=== PATIENT | female | born 1955 | race Caucasian/White ===

== ENCOUNTER 2018-03-28 02:10 | Inpatient (IN) | payer OTHER ==
[~2018-03-28] VITALS: Ht 157.5 cm; Wt 93.0 kg
[~2018-03-28 02:10] MED LIST: ATORVASTATIN CA20 M1 PO; COZAAR100 M1 PO; DUEXIS 800-26.1 EACH PO; FARXIGA5 M1 PO; GABAPENTIN100 M2 PO; GABAPENTIN300 M2 PO; GLUCOPHAGE1000 M1 PO; JARDIANCE10 M1 PO; MASOPHEN500 MG PO; TRESIBA FL100 UNIT/1 SC
--- NOTE | 2018-03-28 12:48 | Admission Core Measures ---
Acute Coronary Syndrome (CM) ACS Core Measures Acute Coronary Syndrome Diagnosis No Congestive Heart Failure (NEW) CHF Core Measures Congestive Heart Failure Diagnosis No Cerebrovascular Accident CVA Core Measures CVA/TIA Diagnosis No Venous Thromboembolism VTE Core Brandyn (View Protocol) VTE Risk Factors Surgery No Mechanical VTE Prophylaxis d/t N/A MechProphylax Ordered No VTE Pharm Prophylaxis d/t NA PharmProphylax ordered Problem List As ranked by this Provider includes Assessment & Plan 1. Unilateral primary osteoarthritis, right hip HOME MEDS Home Med List Acetaminophen (Masophen) 500 MG TABLET 2 TAB PO PRN PAIN (Reported) Atorvastatin Calcium 20 MG TABLET 1 TAB PO Monday CHOLESTEROL ( Reported) Dapagliflozin Propanediol (Farxiga) 5 MG TABLET 1 TAB PO DAILY DM (Reported) Gabapentin 100 MG CAPSULE 1 CAP PO QAM NEUROPATHY (Reported) Gabapentin 300 MG CAPSULE 1 CAP PO QHS NERVE PAIN (Reported) Ibuprofen/Famotidine (Duexis 800-26.6 MG Tablet) 800 MG-26.6 MG TABLET 1 TAB PO BID PAIN/INFLAMMATION (Reported) Insulin Degludec (Tresiba Flextouch U-100) 100 UNIT/ML (3 ML) INSULN.PEN 52-56 UNIT SC QAM DM (Reported) Losartan (Cozaar) 100 MG TABLET 1 TAB PO DAILY BP (Reported) Metformin HCl (Glucophage) 1,000 MG TABLET 1 TAB PO BID DM (Reported)
[2018-03-28] MEDS ORDERED: ASPIRIN EC81 M1 PO (12:52)
[2018-03-28] MEDS ORDERED: PEPCID20 M1 PO (12:52)
[2018-03-28] MEDS ORDERED: COLACE100 M1 PO (12:52)
[2018-03-28] MEDS ORDERED: MIRALAX17 G1 PO (12:52)
--- NOTE | 2018-03-28 13:04 | Patient Discharge Instructions ---
Discharge Instructions General Discharge Information You were seen/treated for: Right hip pain related to unilateral primary osteoarthritis You had these procedures: Right total hip replacement Watch for these problems: Increasing pain despite the use of pain medication Increasing redness, warmth or swelling Drainage of any type from incision Inability to bear weight on operative leg Persistent nausea and vomiting Fever greater than 101.5 degrees Do not soak the wound: Yes No bath, but you may shower: Yes Other wound care: Please keep wound clean and dry. No ointments or lotions of any type on or near incision at any time. No exceptions. Your dressing will be changed by your nurse on the second day after your surgery. Daily dry dressing changes are recommended each day thereafter. Do not soak your wound in a bath or pool at any time until otherwise indicated by your surgeon. You may shower, please dry wound immediately after shower with a clean towel. Special Instructions: Aspirin: You are taking this medication to help prevent blood clot formation. Please take with food to protect your stomach lining. Please take as directed. Constipation: Pain medication can cause constipation. Your surgeon has recommended that you take Colace and miralax each day. You may discontinue this medication if you develop loose stool or diarrhea. If you wish to continue this medication, it is available over the counter. If you are unable to move your bowels after several days, if you are unable to pass gas and are developing bloating, nausea, or vomiting as a result, please contact your doctor. Diet Continue normal diet: No Recommended Diet: Diabetic Activity Full Activity/No Limits: No Activity Self Limited: Yes Pounds, do NOT lift more than: 10 Acute Coronary Syndrome Inclusion Criteria At DC or during hospital stay patient has or had the following: ACS DIAGNOSIS No Discharge Core Measures Meds if any: Prescribed or Continued at Discharge Meds if any: NOT Prescribed or Continued at Discharge Congestive Heart Failure Inclusion Criteria At DC or during hospital stay patient has or had the following: CHF DIAGNOSIS No Discharge Core Measures Meds if any: Prescribed or Continued at Discharge Meds if any: NOT Prescribed or Continued at Discharge Cerebrovascular accident Inclusion Criteria At DC or during hospital stay patient has or had the following: CVA/TIA Diagnosis No Discharge Core Measures Meds if any: Prescribed or Continued at Discharge Meds if any: NOT Prescribed or Continued at Discharge Venous thromboembolism Inclusion Criteria VTE Diagnosis No VTE Type NONE VTE Confirmed by (Test) NONE Discharge Core Measures - Per Current guidelines, there needs to be overlap - treatment for the first 5 days of Warfarin therapy. - If discharged on Warfarin prior to 5 days of - overlap therapy, the patient will need to be - assessed for post discharge needs including - *Post discharge parental anticoagulation - *Warfarin and/or parental anticoagulation education - *Follow up date to check INR post discharge At least 5 days overlap therapy as Inpatient No Meds if any: Prescribed or Continued at Discharge Note: Overlap Therapy is Warfarin and Anticoagulant Meds if any: NOT Prescribed or Continued at Discharge
--- NOTE | 2018-03-28 13:09 | Surgical Discharge Summary ---
Visit Information Visit Dates Admission Date: 03/28/18 Discharge Date: 03/30/18 History of Present Illness Chief Complaint: Right hip pain related to unilateral primary osteoarthritis Medical History Renal: RENAL STONES Isolation History: Standard Surgical History Pertinent Surgical History: none Psychosocial History Who Do You Live With? Spouse What is Your Primary Language? Tajik Review of Systems: See H&P Hospital Course Course Attending Physician: To Sheldon MD Primary Care Physician: Francis Varela MD Hospital Course: Patient was admitted to the hospital for an elective total joint replacement. The procedure was tolerated well and patient was transferred to a general surgical floor. Diet was advanced and tolerated. The patient was evaluated and treated by physical therapy. At the time of hospital discharge, the vital signs were stable, neurovascular status was intact, and pain was controlled with the use of oral pain medications. Allergies: Coded Allergies: Sulfa (Sulfonamide Antibiotics) (PER PT WAS TOLD TO STAY AWAY, ITCHY 03/23/18) cephalexin (HIVES 03/23/18) cyclobenzaprine (From FLEXERIL) (UPSET STOMACH 03/26/18) diazepam (VOMITING, GI UPSET 03/23/18) morphine (HIVES 03/23/18) oxycodone (PER PT UNKNOWN 03/23/18) Disposition Summary Disposition Principal Diagnosis: Right hip unilateral primary osteoarthritis Additional Diagnosis: None Discharge Disposition: home health services Discharge Instructions General Discharge Information Code Status: Full Code Patient's Diet: Diabetic, advance as tolerated Patient's Activity: WBAT Follow-Up Instructions/Appts: Follow up with Dr. Sheldon in 6 weeks from date of surgery. Please call office to arrange &/or confirm this appointment. Medications at Discharge Discharge Medications: Stop taking the following medications: Ibuprofen/Famotidine (Duexis 800-26.6 MG Tablet) 800 MG-26.6 MG TABLET ORAL TWICE DAILY Continue taking these medications: Gabapentin (Gabapentin) 100 MG CAPSULE 1 Capsule ORAL Every Morning Qty = 180 Comments: Last Taken: 03/30/18 Time: 8:00 AM Atorvastatin Calcium (Atorvastatin Calcium) 20 MG TABLET 1 Tablet ORAL MONDAY, MONDAY AND MONDAY Qty = 36 Comments: NOT GIVEN IN HOSPITAL Insulin Degludec (Tresiba Flextouch U-100) 100 UNIT/ML (3 ML) INSULN.PEN 52-56 Unit SC Every Morning Comments: NOT GIVEN IN HOSPITAL Dapagliflozin Propanediol (Farxiga) 5 MG TABLET 1 Tablet ORAL DAILY Comments: NOT GIVEN IN HOSPTIAL Metformin HCl (Glucophage) 1,000 MG TABLET 1 Tablet ORAL TWICE DAILY Comments: Last Taken: 03/30/18 Time: 8:00 AM Losartan (Cozaar) 100 MG TABLET 1 Tablet ORAL DAILY Comments: Last Taken: 03/30/18 Time: 8:00 AM Gabapentin (Gabapentin) 300 MG CAPSULE 1 Capsule ORAL TAKE AT BEDTIME Comments: Last Taken: 03/29/18 Time: 8:30 AM Acetaminophen (Masophen) 500 MG TABLET 2 Tablet ORAL EVERY SIX HOURS NEEDED as needed for PAIN Comments: NOT GIVEN IN HOSPTIAL Start taking the following new medications: Aspirin (Ecotrin*) 81 MG TABLET.DR 1 Tablet ORAL TWICE DAILY Qty = 60 No Refills Instructions: . Comments: Last Taken: 03/30/18 Time: 8:00 AM Docusate Sodium (Colace) 100 MG CAPSULE 1 Capsule ORAL TWICE DAILY Qty = 14 No Refills Instructions: DISCONTINUE USE IF YOU DEVELOP LOOSE STOOL OR DIARRHEA. Famotidine (Pepcid) 20 MG TABLET 1 Tablet ORAL TWICE DAILY Qty = 60 No Refills Instructions: . Comments: Last Taken: 03/30/18 Time: 8:00 AM Polyethylene Glycol 3350 (Miralax) 17 GRAM POWD.PACK 1 Packet ORAL DAILY Qty = 7 No Refills Instructions: dissolve in water, DISCONTINUE USE IF YOU DEVELOP LOOSE STOOL OR DIARRHEA. Comments: Last Taken: 03/30/18 Time: 8:00 AM Hydrocodone/Acetaminophen (Hydrocodon-Acetaminophen 5-325) 5 MG-325 MG TABLET 1 Tablet ORAL EVERY 4-6 HOURS NEEDED as needed for SEVERE PAIN Qty = 40 No Refills Comments: Last Taken: 03/30/18 Time: 8:45 AM Oxycodone HCl (Oxycontin) 15 MG TAB.ER.12H 15 Milligram ORAL EVERY 12 HOURS Qty = 6 No Refills Comments: Last Taken: 03/30/18 Time: 8:00 AM Tramadol HCl (Tramadol HCl) 50 MG TABLET 50 Milligram ORAL EVERY SIX HOURS NEEDED as needed for MILD PAIN Qty = 40 No Refills Comments: Last Taken: 03/30/18 Time: 12:30 PM
--- NOTE | 2018-03-28 14:06 | RADIOLOGY REPORT ---
EXAMINATION: XR HIP, RIGHT CLINICAL INFORMATION: Status post total right hip replacement. COMPARISON: CT abdomen pelvis 04/04/2017 TECHNIQUE: Two views of the right hip. FINDINGS: Prosthetic components of the right total hip arthroplasty are appropriately aligned. No periprosthetic fracture. Gas from recent surgery is present in the surrounding soft tissues. Evaluation is limited by patient's body habitus. IMPRESSION: Normal postoperative appearance of the right total hip prosthesis.
--- NOTE | 2018-03-28 14:55 | Operative Report ---
Operative/Inv Procedure Report Surgery Date: 03/28/18 Name of Procedure: Right total hip replacement Pre-Operative Diagnosis: Primary right hip DJD Post-Operative Diagnosis: Same Estimated Blood Loss: 300 Surgeon/Branch Manager Trainee: Pito JORDAN,To Marte Anesthesia: block Operative/Procedure Note Note: Description of Procedure: The patient was taken to the operating room and positively identified. After induction of spinal anesthesia and administration of appropriate pre-operative antibiotics, the patient was positioned supine on the operating room table and all bony prominences were well padded. After performing a surgical timeout, the right lower extremity was prepped and draped in the usual sterile fashion. A direct anterior approach was made to the right hip. The incision was carried sharply through superficial soft tissues to the level of the fascia. Meticulous hemostasis was maintained with Bovie electocautery. The fascia over the tensor fascia juvencio muscle was opened sharply and the interval between the TFL and the sartorius was entered bluntly taking care to stay lateral to the lateral femoral cutaneous nerve. Retractors were placed around the femoral neck and the pericapsular fat was identified. The ascending branches of the lateral femoral circumflex vessels were identified and carefully coagulated. The pericapsular fat and anterior capsule were then resected. A napkin ring osteotomy was performed and the femoral head was removed without difficulty. Attention was then turned to the acetabulum. After appropriate placement of retractors, the acetabulum was exposed. Soft tissue was cleaned from the acetabular margin and notch. Overhanging osteophytes were removed and the teardrop was exposed. The acetabulum was then sequentially reamed to accept a 54 mm Dar Tritanium hemispherical solid shell. This was impacted into place in the appropriate position and fitted with a 36 mm Trident X3 zero degree polyethylene insert. Attention was then turned to the femur. After performing the appropriate ligament releases, the proximal femur was exposed. It was then sequentially broached to accept a size #2 [place] Accolade II stem. This was trialed for leg length and stability. The trial component was removed and the final component was impacted into place. The trunnion was carefully cleaned and fit with a 36 mm, +2.5 Biolox delta ceramic femoral head. The hip was reduced and put through a full range of motion and found to be stable. The articular space was then irrigated with sterile saline. The periarticular soft tissues were infilitrated with Marcaine. The fascial layer was closed with interrupted #1 vicryl suture and the skin was re-approximated with interrupted 2 -0 vicryl. The skin was closed with a running 3-0 V-Lock suture. Steri-strips and a sterile dressing were applied. The patient was awakened and taken to the recovery room in satisfactory condition.
[2018-03-28 15:00] VITALS: BP 124/68
--- NOTE | 2018-03-28 15:47 | PN- Orthopedic ---
Subjective Subjective: POST-OP NOTE Reports more pain than she anticipated upon waking up, which seems better now after receiving multiple doses of iv dilaudid in pacu. She has GI side effects from percocet, valium, and flexeril. She doesn't believe she has ever had ultram in the past, and is open to trying this for pain control with iv tylenol. Tolerating ice chips / clears. No nausea. Denies dizziness. No shortness of breath. No chest pains. She will bring in her farxiga from home, and understands pharmacy will substitute levemir for her usual flex pen that our pharmacy does not have. Objective Vital Signs and I&Os Vital Signs Date Time Temp Pulse Resp B/P B/P Pulse O2 O2 Flow FiO2 Mean Ox Delivery Rate 03/28 1500 97.9 80 18 124/68 97 Nasal 2.0L Cannula Physical Exam: General - alert & oriented x 3. comfortable. no acute distress. Lungs - clear bilaterally. no w/r/r. Cardiac - s1s2. reg. Abdomen - soft. nontender. Extremities - warm bilaterally. right hip dressing c/d/i. no drains. no hematoma. calves soft and nontender b/l. athrombics in place. nvi. Current Medications: Current Medications Sig/Leonardo Start time Last Medication Dose Route Stop Time Status Admin Acetaminophen 1,000 MG Q6 03/28 1800 AC IV 03/29 1201 Acetaminophen 0 .STK-MED ONE 03/28 0836 DC PO Acetaminophen 975 MG ONCE 03/28 0000 DC PO 03/28 2359 Aspirin Buffered 81 MG BID 03/28 2100 AC PO Atorvastatin Calcium 20 MG 03/30 0900 AC PO Cefazolin Sodium 2 GM Q8H 03/28 1830 AC N/A 1 UNIT IV 03/29 0259 Cefazolin Sodium 2,000 MG ONCE 03/28 0000 DC IV 03/28 2359 Docusate Sodium 100 MG BID 03/28 2100 AC PO Famotidine 20 MG DAILY 03/29 0900 AC PO Gabapentin 100 MG QAM 03/29 0900 AC PO Gabapentin 300 MG QPM 03/28 2100 AC PO Insulin Detemir 52 UNITS DAILY 03/29 0900 AC SC Insulin Human Regular 0 TIDAC/HS 03/28 1700 AC SC Ketorolac 15 MG Q8P PRN 03/28 1445 AC Tromethamine IV 03/31 1443 Losartan Potassium 100 MG DAILY 03/29 0900 AC PO Metformin HCl 1,000 MG 0800,1700 03/29 0800 AC PO Midazolam HCl 4 MG .STK-MED ONE 03/28 0653 DC IM 03/28 0654 Non-Formulary 0 SEE ADMIN CRITERIA 03/28 1600 UNVr Medication ANY Ondansetron HCl 4 MG Q6P PRN 03/28 1445 AC IV Oxycodone HCl 0 .STK-MED ONE 03/28 0836 DC PO Oxycodone HCl 10 MG ONCE 03/28 0000 DC PO 03/28 2359 Polyethylene Glycol 17 GM DAILY 03/29 09 AC PO Promethazine HCl 12.5 MG Q6P PRN 03/28 1445 AC IV 04/04 1244 Sodium Chloride 1,000 ML .[id number] 03/28 1445 AC 03/28 IV 1458 Tramadol HCl 50 MG Q6P PRN 03/28 1445 AC 03/28 PO 1517 Tramadol HCl 100 MG Q6P PRN 03/28 1445 AC PO Tranexamic Acid 2,000 MG .STK-MED ONE 03/28 0653 DC IV 03/28 0654 Assessment/Plan Assessment/Plan This 63 year old female with hx htn, iddm, morbid obesity, arthritis, is POD#0 s /p right total hip replacement for unilateral primary osteoarthritis advance diet as tolerated levemir to start in the morning. will resume metformin and farxiga in the morning as well monitor accuchecks / ss coverage PT eval asa bid - dvt ppx fer-operative ancef x 2 doses bowel regime ordered home meds ordered f/u AM labs dressing change POD#2 will d/w Core Measures Venous Thromboembolism VTE Risk Factors Surgery No Mechanical VTE Prophylaxis d/t N/A MechProphylax Ordered No VTE Pharm Prophylaxis d/t NA PharmProphylax ordered
[2018-03-28 17:25] VITALS: BP 122/64
[2018-03-28 19:46] VITALS: BP 104/62
[2018-03-28 21:53] VITALS: BP 120/58
[2018-03-28 23:30] VITALS: BP 114/60
[2018-03-29 02:52] VITALS: BP 104/56
[2018-03-29 06:59] VITALS: BP 116/60
[2018-03-29 08:10] LABS: ABSOLUTE BASOPHIL COUNT 0.1 /CUMM (0.0-0.2); ABSOLUTE EOSINOPHIL COUNT 0.1 /CUMM (0.0-0.7); ABSOLUTE GRANULOCYTE CT 6.5 /CUMM (1.4-6.5); ABSOLUTE LYMPH COUNT 2.1 /CUMM (1.2-3.4); ABSOLUTE MONOCYTE COUNT 0.6 /CUMM (0.10-0.60); BASOPHIL % 0.6 % (0.0-2.0); EOSINOPHIL % 1.5 % (0-5); GRANULOCYTE % 69.6 % (42.2-75.2); HEMATOCRIT 35.8 % (37-47); MEAN CORPUSCULAR HGB 30.6 PG (27.0-31.0); MEAN CORPUSCULAR HGB CONC 33.7 G/DL (33.0-37.0); MEAN CORPUSCULAR VOLUME 90.9 FL (81.0-99.0); MEAN PLATELET VOLUME 9.6 FL (7.4-10.4); PLATELET COUNT 212 /CUMM (130-400); RBC DISTRIBUTION WIDTH 13.3 % (11.5-14.5); RED BLOOD CELL CT 3.95 /CUMM (4.20-5.40); WHITE BLOOD CELL COUNT 9.3 /CUMM (4.8-10.8)
--- NOTE | 2018-03-29 08:51 | PN- Orthopedic ---
Subjective Subjective: Patient reports heaviness in her right left and pain uncontrolled with ultram. She just recieved Toradol. She states she does not want any narcotics. She reports ambulting with PT, has not cleared staired yet. Tolerating a diet and voiding spontanously. Offer no other complaints. Objective Vital Signs and I&Os Vital Signs Date Time Temp Pulse Resp B/P B/P Pulse O2 O2 Flow FiO2 Mean Ox Delivery Rate 03/29 0842 74 112/50 03/29 0659 97.9 79 18 116/60 99 Room Air 03/29 0252 97.8 73 18 104/56 95 Room Air 03/28 2330 97.6 80 20 114/60 97 Room Air 03/28 2153 97.6 84 20 120/58 96 Room Air 03/28 1946 97.9 77 18 104/62 96 Room Air 03/28 1725 97.9 74 20 122/64 95 Room Air 03/28 1500 97.9 80 18 124/68 97 Nasal 2.0L Cannula Intake & Output 03/29 1600 03/29 0803/29 0000 03/28 1600 03/28 0800 03/28 0000 Intake Total 840 870 Output Total 625 725 Balance 215 145 Intake, IV 600 470 Intake, Oral 240 400 Number 0 Bowel Movements Output, Urine 625 725 Patient 205 lb Weight Weight Bed scale Measurement Method Physical Exam: Gen - in mild distress and anxious due to pain Cardiac - S1S2 noted Lungs - CTAB Abd - soft, nontender Ext - R hip dressing c/d/i, mild ecchymosis, moves all extremities, motor an senosry intact, compartment soft, appropriately tender fer-incsionally, alps in place, no edema or calf pain Current Medications: Current Medications Sig/Leonardo Start time Last Medication Dose Route Stop Time Status Admin Acetaminophen 1,000 MG Q6 03/28 1800 AC 03/29 IV 03/29 1201 0459 Acetaminophen 975 MG ONCE 03/28 0000 DC PO 03/28 2359 Aspirin Buffered 81 MG BID 03/28 2100 AC 03/29 PO 0843 Atorvastatin Calcium 20 MG 03/30 0900 AC PO Cefazolin Sodium 2 GM Q8H 03/28 1830 DC 03/29 N/A 1 UNIT IV 03/29 0259 0228 Cefazolin Sodium 2,000 MG ONCE 03/28 0000 DC IV 03/28 2359 Docusate Sodium 100 MG BID 03/28 2100 AC 03/29 PO 0842 Famotidine 20 MG DAILY 03/29 0900 AC 03/29 PO 0843 Gabapentin 100 MG QAM 03/29 0900 AC 03/29 PO 0843 Gabapentin 300 MG QPM 03/28 2100 AC 03/28 PO 2153 Hydromorphone HCl 2 MG .STK-MED ONE 03/28 1328 DC IM 03/28 1329 Hydromorphone HCl 2 MG .STK-MED ONE 03/28 1317 DC IM 03/28 1318 Hydromorphone HCl 2 MG .STK-MED ONE 03/28 1307 DC IM 03/28 1308 Hydromorphone HCl 2 MG .STK-MED ONE 03/28 1255 DC IM 03/28 1256 Hydromorphone HCl 2 MG .STK-MED ONE 03/28 1254 DC IM 03/28 1255 Insulin Detemir 52 UNITS DAILY 03/29 0900 AC 03/29 SC 0842 Insulin Human Regular 0 TIDAC/HS 03/28 1700 AC 03/29 SC 0948 Ketorolac 15 MG Q8P PRN 03/28 1445 AC 03/29 Tromethamine IV 03/31 1443 0841 Losartan Potassium 100 MG DAILY 03/29 0900 AC 03/29 PO 0842 Metformin HCl 1,000 MG 0800,1700 03/29 0800 AC 03/29 PO 0842 Midazolam HCl 2 MG .STK-MED ONE 03/28 1340 DC IM 03/28 1341 Non-Formulary 0 SEE ADMIN CRITERIA 03/28 1600 UNV Medication ANY Ondansetron HCl 4 MG Q6P PRN 03/28 1445 AC 03/28 IV 1619 Oxycodone HCl 10 MG ONCE 03/28 0000 DC PO 03/28 2359 Polyethylene Glycol 17 GM DAILY 03/29 0900 AC 03/29 PO 0842 Promethazine HCl 12.5 MG Q6P PRN 03/28 1445 AC IV 04/04 1244 Sodium Chloride 1,000 ML .[id number] 03/28 1445 DC 03/29 IV 0459 Tramadol HCl 50 MG Q6P PRN 03/28 1445 AC 03/29 PO 0459 Tramadol HCl 100 MG Q6P PRN 03/28 1445 AC PO Results Last 48 Hours of Labs: Laboratory Tests 03/29 0719 Chemistry Sodium (137 - 145 mmol/L) 139 Potassium (3.5 - 5.1 mmol/L) 4.1 Chloride (98 - 107 mmol/L) 105 Carbon Dioxide (22 - 30 mmol/L) 24 Anion Gap (5 - 16) 10 BUN (7 - 17 mg/dL) 23 H Creatinine (0.5 - 1.0 mg/dL) 0.6 Estimated GFR (>60 ml/min) > 60 BUN/Creatinine Ratio (7 - 25 %) 38.3 H Hematology CBC w Diff NO MAN DIFF REQ WBC (4.8 - 10.8 /CUMM) 9.3 RBC (4.20 - 5.40 /CUMM) 3.95 L Hgb (12.0 - 16.0 G/DL) 12.1 Hct (37 - 47 %) 35.8 L MCV (81.0 - 99.0 FL) 90.9 MCH (27.0 - 31.0 PG) 30.6 MCHC (33.0 - 37.0 G/DL) 33.7 RDW (11.5 - 14.5 %) 13.3 Plt Count (130 - 400 /CUMM) 212 MPV (7.4 - 10.4 FL) 9.6 Gran % (42.2 - 75.2 %) 69.6 Lymphocytes % (20.5 - 51.1 %) 22.2 Monocytes % (1.7 - 9.3 %) 6.1 Eosinophils % (0 - 5 %) 1.5 Basophils % (0.0 - 2.0 %) 0.6 Absolute Granulocytes (1.4 - 6.5 /CUMM) 6.5 Absolute Lymphocytes (1.2 - 3.4 /CUMM) 2.1 Absolute Monocytes (0.10 - 0.60 /CUMM) 0.6 Absolute Eosinophils (0.0 - 0.7 /CUMM) 0.1 Absolute Basophils (0.0 - 0.2 /CUMM) 0.1 Assessment/Plan Assessment/Plan 63 F POD 1 s/p right total hip replacement due to primary right hip osteoarthritis OOB w/ PT, WBAT Ada diet, d/c IVF Pain regimen prn - ultrram, toradol for breakthrough DVT ppx - asa 81 bid, alps Home meds on board Monitor accuchecks / ss coverage Labs reviewed, stable dressing change POD#2 Anticipate d/c home w/ hhs today pending PT clearance Core Measures Venous Thromboembolism VTE Risk Factors Surgery No Mechanical VTE Prophylaxis d/t N/A MechProphylax Ordered No VTE Pharm Prophylaxis d/t NA PharmProphylax ordered
[2018-03-29 11:00] VITALS: BP 118/58
[2018-03-29 14:09] VITALS: BP 122/68
[2018-03-29 15:23] VITALS: BP 100/50
[2018-03-29 21:42] VITALS: BP 120/58
[2018-03-30 06:28] VITALS: BP 124/64
--- NOTE | 2018-03-30 07:49 | PN- Orthopedic ---
Subjective Subjective: Patient with complaints of pain, constant pain at least 2 out of 10, no fever no flulike illness, no chills or sweats. Pain is anterior thigh and right groin Objective Vital Signs and I&Os Vital Signs Date Time Temp Pulse Resp B/P B/P Pulse O2 O2 Flow FiO2 Mean Ox Delivery Rate 03/30 628 99.0 90 20 124/64 98 Room Air 03/29 2142 99.7 87 18 120/58 94 Room Air 03/29 1523 98.5 83 16 100/50 95 Room Air 03/29 1409 98.1 85 22 122/68 97 Room Air 03/29 1100 97.8 77 16 118/58 95 Room Air 03/29 0842 74 112/50 Intake & Output 03/30 0803/30 0000 03/29 1600 03/29 0803/29 0000 03/28 1600 Intake Total 240 480 840 840 870 Output Total 300 400 625 725 Balance -60 480 440 215 145 Intake, IV 600 470 Intake, Oral 240 480 840 240 400 Number 0 Bowel Movements Output, Urine 300 400 625 725 Patient 205 lb Weight Weight Bed scale Measurement Method Physical Exam: Well-developed well-nourished no apparent distress. HEENT: Atraumatic, extraocular motion intact Neck: Supple, no lymphadenopathy Respiratory: No respiratory distress Extremities: No edema RIGHT lower extremity hip dressing in place, Dressing clean dry and intact Mild thigh swelling No signs of infection. No shortening or rotation Hip range of motion is limited and without unexpected pain Neurovascularly intact distally Bilateral calves are supple, nontender. Neuro: Alert and oriented x3 Psych: Mood affect normal, normal memory normal judgment. Skin: Warm and dry, no rash on exposed skin Results Last 48 Hours of Labs: Laboratory Tests 03/29 719 Chemistry Sodium (137 - 145 mmol/L) 139 Potassium (3.5 - 5.1 mmol/L) 4.1 Chloride (98 - 107 mmol/L) 105 Carbon Dioxide (22 - 30 mmol/L) 24 Anion Gap (5 - 16) 10 BUN (7 - 17 mg/dL) 23 H Creatinine (0.5 - 1.0 mg/dL) 0.6 Estimated GFR (>60 ml/min) > 60 BUN/Creatinine Ratio (7 - 25 %) 38.3 H Hematology CBC w Diff NO MAN DIFF REQ WBC (4.8 - 10.8 /CUMM) 9.3 RBC (4.20 - 5.40 /CUMM) 3.95 L Hgb (12.0 - 16.0 G/DL) 12.1 Hct (37 - 47 %) 35.8 L MCV (81.0 - 99.0 FL) 90.9 MCH (27.0 - 31.0 PG) 30.6 MCHC (33.0 - 37.0 G/DL) 33.7 RDW (11.5 - 14.5 %) 13.3 Plt Count (130 - 400 /CUMM) 212 MPV (7.4 - 10.4 FL) 9.6 Gran % (42.2 - 75.2 %) 69.6 Lymphocytes % (20.5 - 51.1 %) 22.2 Monocytes % (1.7 - 9.3 %) 6.1 Eosinophils % (0 - 5 %) 1.5 Basophils % (0.0 - 2.0 %) 0.6 Absolute Granulocytes (1.4 - 6.5 /CUMM) 6.5 Absolute Lymphocytes (1.2 - 3.4 /CUMM) 2.1 Absolute Monocytes (0.10 - 0.60 /CUMM) 0.6 Absolute Eosinophils (0.0 - 0.7 /CUMM) 0.1 Absolute Basophils (0.0 - 0.2 /CUMM) 0.1 Assessment/Plan Assessment/Plan 63 F POD 2 s/p right total hip replacement due to primary right hip osteoarthritis OOB w/ PT, WBAT Ada diet Add OxyContin every 12 hours for pain DVT ppx - asa 81 bid, alps Home meds on board Monitor accuchecks / ss coverage Anticipate d/c home w/ hhs today Core Measures Venous Thromboembolism VTE Risk Factors Surgery No Mechanical VTE Prophylaxis d/t N/A MechProphylax Ordered No VTE Pharm Prophylaxis d/t NA PharmProphylax ordered
[2018-03-30] MEDS ORDERED: HYDROCODON-ACE1 EAC2 PO (14:04)
[2018-03-30] MEDS ORDERED: MIRALAX17 G1 PO (14:04)
[2018-03-30] MEDS ORDERED: OXYCONTIN15 M1 PO (14:04)
[2018-03-30] MEDS ORDERED: PEPCID20 M1 PO (14:04)
[2018-03-30] MEDS ORDERED: TRAMADOL HCL50 M1 PO (14:04)
[2018-03-30] MEDS ORDERED: COLACE100 M1 PO (14:04)
[2018-03-30] MEDS ORDERED: ASPIRIN EC81 M1 PO (14:04)
[2018-03-30 14:37] VITALS: BP 102/52
== END 2018-03-30 15:49 | disposition home health service (06) | DRG 470 ==
LOC: SDA 02:10 → ENRESERV 13:10 → ENTRNSPT 14:25 → EDTRNSPTSTS 14:27 → EDTRNSPT 14:27 → 2NB 14:39 → CMPTRNSPT 14:46 → ENPENDDIS 03-30 14:15 → ENTRNSPT 03-30 15:25 → EDTRNSPTSTS 03-30 15:39 → EDTRNSPT 03-30 15:39 → 2NB 03-30 15:49 → CMPTRNSPT 03-30 15:58
PROVIDERS: Nurse Practitioner
PROC: 0SR902A Replacement of Right Hip Joint with Metal on Polyethylene Synthetic Substitute, Uncemented, Open Approach (ICD-10-PCS; principal; 2018-03-28)
DX: M16.11 Unilateral primary osteoarthritis, right hip (principal); I10 Essential (primary) hypertension; E11.9 Type 2 diabetes mellitus without complications; E66.9 Obesity, unspecified
CPT/HCPCS: 2NBP; 36592; 73502-RT; 82436; 88304; 97110-GO; 97116-GO; 97161-GP; 97530-GO; J0131; J0690; J0735; J1815; J2405; J2550; J3490